=== PATIENT | female | born 1985 | race Two or more races ===

== ENCOUNTER → 2021-02-12 | Emergency (ER) | payer OTHER ==
[~2021-02-12] VITALS: Ht 154.9 cm; Wt 56.2 kg
[~2021-02-12] MED LIST: KETO10TA2 PO
== END | disposition left against medical advice (07) ==
LOC: ER 17:29
DX: N20.0 Calculus of kidney (principal); N39.0 Urinary tract infection, site not specified; Z53.29 Procedure and treatment not carried out because of patient's decision for other reasons